=== PATIENT | male | born 1970 | race Caucasian/White ===

== ENCOUNTER 2018-03-28 11:57 | Outpatient (REF) | payer BC, MEDICAID, SELFPAY ==
[2018-03-28 21:01] LABS: Anion Gap 9.8 mmol/L (3-11); BUN 50 mg/dL (7-18); CO2 26.2 mmol/L (21.0-32.0); CREATININE 1.67 mg/dL (0.70-1.30); Calcium 8.7 mg/dL (8.5-10.1); Chloride 105 mmol/L (98-107); Estimated GFR 44.71 (mL/min/1.73m2); Glucose 142 mg/dL (70-100); Potassium 4.4 mmol/L (3.5-5.1); Sodium 141 mmol/L (136-145)
== END 2018-03-28 11:58 ==
LOC: NCHCN 11:57
PROVIDERS: PCP Internal Medicine; Visit Provider Internal Medicine
DX: L97.209 Non-pressure chronic ulcer of unspecified calf with unspecified severity (principal)
CPT/HCPCS: 80048

== ENCOUNTER 2018-11-27 10:42 | Outpatient (REF) | payer MEDICAID, SELFPAY ==
[2018-11-27 21:31] LABS: Abs Immature Grans 0.01 k/cumm (0.0-0.09); Absolute Basophil Count 0.01 k/cumm (0.0-0.2); Absolute Eosinophil Count 0.16 k/cumm (0.0-0.7); Absolute Lymphocyte Count 0.58 k/cumm (1.2-3.4); Absolute Monocyte Count 0.31 k/cumm (0.11-0.7); Absolute Neutrophil Count 3.24 k/cumm (1.2-6.7); Basophils % 0.2; Eosinophils % 3.7; HCT 37.5 % (40.0-50.0); HGB 11.5 g/dL (13.5-17.5); Immature Grans % 0.2; Lymphocytes % 13.5; Mean Corp. HGB Concentration 30.7 g/dL (32.0-36.0); Mean Corpuscular Hemoglobin 27.4 pg (27.0-33.0); Mean Corpuscular Volume 89.3 fL (80-95); Mean Platelet Volume 11.4 fL (8.0-11.0); Monocytes % 7.2; Neutrophils % 75.2; Platelet Count 118 x1000/uL (130-400); RBC Distribution Width 14.1 % (11.8-14.1); White Blood Cell Count 4.31 k/cumm (4.4-10.8)
[2018-11-27 22:02] LABS: BUN 58 mg/dL (7-18); CREATININE 1.98 mg/dL (0.70-1.30); Calcium 8.9 mg/dL (8.5-10.1); Chloride 103 mmol/L (98-107); Cholesterol 157 mg/dL (50-200); Estimated GFR 36.57 (mL/min/1.73m2); Glucose 130 mg/dL (70-100); HDL Cholesterol 29 mg/dL (40-60); LDL CHOLESTEROL 100 mg/dL (<100); Potassium 4.5 mmol/L (3.5-5.1); Sodium 140 mmol/L (136-145); TSH 3.71 uIU/mL (0.358-3.74); Triglyceride 142 mg/dL (30-150)
== END 2018-11-27 11:02 ==
LOC: NCHCN 10:42
PROVIDERS: PCP Internal Medicine; Visit Provider Nurse Practitioner Family
DX: E11.9 Type 2 diabetes mellitus without complications (principal); E78.5 Hyperlipidemia, unspecified; Z79.01 Long term (current) use of anticoagulants
CPT/HCPCS: 80048; 80061; 83721; 84443; 85025

== ENCOUNTER 2018-12-08 08:35 | Outpatient (REF) | payer MEDICAID, SELFPAY ==
[2018-12-08 21:05] LABS: Anion Gap 11.8 mmol/L (3-11); BUN 67 mg/dL (7-18); CO2 20.2 mmol/L (21.0-32.0); CREATININE 1.93 mg/dL (0.70-1.30); Calcium 8.9 mg/dL (8.5-10.1); Chloride 105 mmol/L (98-107); Estimated GFR 37.67 (mL/min/1.73m2); Glucose 148 mg/dL (70-100); Potassium 4.8 mmol/L (3.5-5.1); Sodium 137 mmol/L (136-145)
== END 2018-12-08 08:55 ==
LOC: NCHCN 08:35
PROVIDERS: PCP Internal Medicine; Visit Provider Nurse Practitioner Family
DX: N18.9 Chronic kidney disease, unspecified (principal)
CPT/HCPCS: 80048

== ENCOUNTER 2018-12-16 10:48 | Outpatient (REF) | payer MEDICAID, SELFPAY ==
[2018-12-16 21:40] LABS: Anion Gap 10.1 mmol/L (3-11); BUN 59 mg/dL (7-18); CO2 23.9 mmol/L (21.0-32.0); CREATININE 1.79 mg/dL (0.70-1.30); Calcium 8.6 mg/dL (8.5-10.1); Chloride 102 mmol/L (98-107); Estimated GFR 41.09 (mL/min/1.73m2); Glucose 148 mg/dL (70-100); Potassium 4.5 mmol/L (3.5-5.1); Sodium 136 mmol/L (136-145)
== END 2018-12-16 11:08 ==
LOC: NCHCN 10:48
PROVIDERS: PCP Nurse Practitioner Family; Visit Provider Nurse Practitioner Family
DX: I15.9 Secondary hypertension, unspecified (principal); N18.9 Chronic kidney disease, unspecified
CPT/HCPCS: 80048; 83735

== ENCOUNTER 2019-01-21 10:12 | Outpatient (REF) | payer MEDICAID, SELFPAY ==
[2019-01-21 22:25] LABS: Anion Gap 9.6 mmol/L (3-11); BUN 48 mg/dL (7-18); CO2 24.4 mmol/L (21.0-32.0); CREATININE 1.73 mg/dL (0.70-1.30); Calcium 9.3 mg/dL (8.5-10.1); Chloride 102 mmol/L (98-107); Estimated GFR 42.74 (mL/min/1.73m2); Glucose 162 mg/dL (70-100); Potassium 4.2 mmol/L (3.5-5.1); Sodium 136 mmol/L (136-145)
== END 2019-01-21 10:32 ==
LOC: NCHCN 10:12
PROVIDERS: PCP Nurse Practitioner Family; Visit Provider Internal Medicine
DX: I15.9 Secondary hypertension, unspecified (principal); N18.9 Chronic kidney disease, unspecified
CPT/HCPCS: 80048

== ENCOUNTER 2019-10-09 13:29 | Outpatient (REF) | payer MEDICAID, SELFPAY ==
[2019-10-09 20:17] LABS: HCT 35.8 % (40.0-50.0); HGB 11.5 g/dL (13.5-17.5); Mean Corp. HGB Concentration 32.1 g/dL (32.0-36.0); Mean Corpuscular Hemoglobin 27.8 pg (27.0-33.0); Mean Corpuscular Volume 86.7 fL (80-95); Mean Platelet Volume 11.1 fL (8.0-11.0); RBC 4.13 m/cumm (4.50-6.00)
[2019-10-09 20:50] LABS: Platelet Count 99 x1000/uL (130-400)
[2019-10-09 21:05] LABS: Anion Gap 10.8 mmol/L (3-11); BUN 57 mg/dL (7-18); CO2 26.2 mmol/L (21.0-32.0); CREATININE 1.75 mg/dL (0.70-1.30); Calcium 9.1 mg/dL (8.5-10.1); Chloride 102 mmol/L (98-107); Estimated GFR 41.99 (mL/min/1.73m2); Glucose 242 mg/dL (74-106); Magnesium 1.4 mg/dL (1.8-2.4); Potassium 4.6 mmol/L (3.5-5.1); Sodium 139 mmol/L (136-145); Vitamin B12 749 pg/mL (193-986)
[2019-10-09 21:16] LABS: Uric Acid 8.7 mg/dL (3.5-7.2)
== END 2019-10-09 13:49 ==
LOC: NCHCN 13:29
PROVIDERS: PCP Nurse Practitioner Family; Visit Provider Nurse Practitioner Family
DX: E11.9 Type 2 diabetes mellitus without complications (principal); I10 Essential (primary) hypertension; M10.9 Gout, unspecified; D63.1 Anemia in chronic kidney disease; K21.9 Gastro-esophageal reflux disease without esophagitis; Z51.81 Encounter for therapeutic drug level monitoring
CPT/HCPCS: 80048; 85027; 82607; 83735; 84550

== ENCOUNTER 2019-10-16 15:58 | Outpatient (REF) | payer MEDICAID, SELFPAY ==
[2019-10-16 21:35] LABS: HCT 33.7 % (40.0-50.0); HGB 10.6 g/dL (13.5-17.5); Mean Corp. HGB Concentration 31.5 g/dL (32.0-36.0); Mean Corpuscular Hemoglobin 27.5 pg (27.0-33.0); Mean Corpuscular Volume 87.5 fL (80-95); Mean Platelet Volume 11.1 fL (8.0-11.0); Platelet Count 131 x1000/uL (130-400); RBC 3.85 m/cumm (4.50-6.00); RBC Distribution Width 14.7 % (11.8-14.1); White Blood Cell Count 5.97 k/cumm (4.4-10.8)
[2019-10-16 21:45] LABS: ALT 33 U/L (16-63); AST 19 U/L (15-37); Albumin 3.5 g/dL (3.4-5.0); Alkaline Phosphatase 58 U/L (46-116); Anion Gap 8.6 mmol/L (3-11); BUN 60 mg/dL (7-18); Bilirubin, Total 0.3 mg/dL (0.2-1.0); CO2 27.4 mmol/L (21.0-32.0); CREATININE 1.99 mg/dL (0.70-1.30); Calcium 8.8 mg/dL (8.5-10.1); Chloride 103 mmol/L (98-107); Glucose 145 mg/dL (74-106); Potassium 4.5 mmol/L (3.5-5.1); Sodium 139 mmol/L (136-145); Total Protein 6.5 g/dL (6.4-8.2)
== END 2019-10-16 16:18 ==
LOC: NCHCN 15:58
PROVIDERS: PCP Nurse Practitioner Family; Visit Provider Family Medicine
DX: R06.09 Other forms of dyspnea (principal)
CPT/HCPCS: 80053; 85027

== ENCOUNTER 2020-04-19 19:23 | Outpatient (REF) | payer MEDICAID, SELFPAY ==
[2020-04-19 21:59] LABS: Anion Gap 10.6 mmol/L (3-11); BUN 73 mg/dL (7-18); CO2 29.4 mmol/L (21.0-32.0); CREATININE 2.35 mg/dL (0.70-1.30); Calcium 9.2 mg/dL (8.5-10.1); Chloride 99 mmol/L (98-107); Estimated GFR 29.88 (mL/min/1.73m2); Glucose 274 mg/dL (74-106); Potassium 3.4 mmol/L (3.5-5.1); Sodium 139 mmol/L (136-145); Uric Acid 10.5 mg/dL (3.5-7.2)
== END 2020-04-19 19:43 ==
LOC: NCHCN 19:23
PROVIDERS: PCP Nurse Practitioner Family; Visit Provider Nurse Practitioner Family
DX: M10.9 Gout, unspecified (principal); E11.9 Type 2 diabetes mellitus without complications; I10 Essential (primary) hypertension; N18.9 Chronic kidney disease, unspecified; F32.9 Major depressive disorder, single episode, unspecified
CPT/HCPCS: 80048; 84550

== ENCOUNTER 2020-08-15 14:50 | Outpatient (REF) | payer MEDICAID, SELFPAY ==
[2020-08-15 20:56] LABS: Anion Gap 11.1 mmol/L (3-11); CO2 24.9 mmol/L (21.0-32.0); CREATININE 2.46 mg/dL (0.70-1.30); Calcium 9.5 mg/dL (8.5-10.1); Chloride 99 mmol/L (98-107); Estimated GFR 28.22 (mL/min/1.73m2); Glucose 293 mg/dL (74-106); Potassium 4.1 mmol/L (3.5-5.1); Sodium 135 mmol/L (136-145)
[2020-08-15 21:07] LABS: Hemoglobin A1C 8.5 % (<5.7)
[2020-08-15 21:28] LABS: BUN 95 mg/dL (7-18)
== END 2020-08-15 15:10 ==
LOC: NCHCN 14:50
PROVIDERS: PCP Nurse Practitioner Family; Visit Provider Nurse Practitioner Family
DX: E11.9 Type 2 diabetes mellitus without complications (principal); N18.9 Chronic kidney disease, unspecified; I10 Essential (primary) hypertension
CPT/HCPCS: 80048; 83036

== ENCOUNTER 2021-05-02 14:57 | Outpatient (REF) | payer MEDICAID, SELFPAY ==
[2021-05-02 21:47] LABS: PROTEIN 68.9 mg/dL
[2021-05-02 21:48] LABS: COMMENT (LAB VIEW ONLY) 148.25 mg/dL; Prot/Crea Ur Ratio 0.46
== END 2021-05-02 14:58 | disposition home or self-care (01) ==
LOC: NCHCN 14:57
PROVIDERS: PCP Nurse Practitioner Family; Visit Provider Nurse Practitioner Family
DX: E11.9 Type 2 diabetes mellitus without complications (principal); I10 Essential (primary) hypertension; N18.9 Chronic kidney disease, unspecified; F32.9 Major depressive disorder, single episode, unspecified; D63.1 Anemia in chronic kidney disease; Z79.01 Long term (current) use of anticoagulants
CPT/HCPCS: 82565; 84156

== ENCOUNTER 2021-10-23 17:00 | Outpatient (REF) | payer MEDICAID, SELFPAY ==
[2021-10-25 12:58] LABS: COVID-19 RT-PCR UVMMC Result Negative (Negative)
== END 2021-10-23 17:01 | disposition home or self-care (01) ==
LOC: NCHCN 17:00
PROVIDERS: PCP Nurse Practitioner Family; Visit Provider Nurse Practitioner Family
DX: Z20.822 Contact with and (suspected) exposure to COVID-19 (principal); J02.9 Acute pharyngitis, unspecified
CPT/HCPCS: U0003

== ENCOUNTER 2023-04-12 11:18 | Outpatient (REF) | payer MEDICARE, MEDICAID, SELFPAY ==
[2023-04-12 15:34] LABS: HCT 33.9 % (40.0-50.0); HGB 10.9 g/dL (13.5-17.5); MCH 29.8 pg (27.0-33.0); MCHC 32.2 % (32.0-36.0); MCV 93 fL (80-95); MPV 11.3 fL (8.0-11.0); Platelet Count 115 10^3/uL (130-400); RBC 3.66 10^6/uL (4.36-5.78); RDW 14.5 % (11.8-14.1); RDW-SD 48.2 fL; WBC 8.59 10^3/uL (4.4-10.8)
[2023-04-12 15:59] LABS: ALT 27 U/L (16-63); AST 18 U/L (15-37); Albumin 3.8 g/dL (3.4-5.0); Alkaline Phosphatase 46 U/L (46-116); Anion Gap 11.6 mmol/L (3-11); Bilirubin, Total 0.4 mg/dL (0.2-1.0); CO2 24.4 mmol/L (21.0-32.0); CREATININE 2.4 mg/dL (0.70-1.30); Chloride 99 mmol/L (98-107); Estimated GFR 32.07 (mL/min/1.73m2); Glucose 238 mg/dL (74-106); Lipase 35 U/L (16-77); Potassium 5.2 mmol/L (3.5-5.1); Sodium 135 mmol/L (136-145); TSH 3.03 uIU/mL (0.36-3.74); Total Protein 7.6 g/dL (6.4-8.2)
[2023-04-12 16:12] LABS: BUN 88 mg/dL (7-18)
== END 2023-04-12 11:19 | disposition home or self-care (01) ==
LOC: NCHCN 11:18
PROVIDERS: PCP Nurse Practitioner Family; Visit Provider Family Medicine
DX: N18.9 Chronic kidney disease, unspecified; E11.9 Type 2 diabetes mellitus without complications; R79.89 Other specified abnormal findings of blood chemistry; I10 Essential (primary) hypertension
CPT/HCPCS: 80053; 83690; 85027; 84443

== ENCOUNTER 2024-10-01 12:51 | Outpatient (REF) | payer MEDICARE, SELFPAY ==
[2024-10-05 08:20] LABS: COMMENT (LAB VIEW ONLY) 104.75 mg/dL; PROTEIN 19.4 mg/dL; Prot/Crea Ur Ratio 0.18
== END 2024-10-01 12:52 | disposition home or self-care (01) ==
LOC: NCHCN 12:51
PROVIDERS: PCP Nurse Practitioner Family; Visit Provider Nurse Practitioner Family
DX: E11.9 Type 2 diabetes mellitus without complications (principal)
CPT/HCPCS: 82565; 84156

== ENCOUNTER 2025-02-03 17:33 | Outpatient (REF) | payer MEDICARE, SELFPAY ==
[2025-02-03 21:15] LABS: COMMENT (LAB VIEW ONLY) 73.15 mg/dL; PROTEIN 48.5 mg/dL; Prot/Crea Ur Ratio 0.66
== END 2025-02-03 17:34 | disposition home or self-care (01) ==
LOC: NCHCN 17:33
PROVIDERS: PCP Nurse Practitioner Family; Visit Provider Nurse Practitioner Family
DX: E11.9 Type 2 diabetes mellitus without complications (principal)
CPT/HCPCS: 82565; 84156